=== PATIENT | male | born 1955 | race Caucasian/White ===

== ENCOUNTER 2024-09-05 14:30 | Emergency (ER) | payer BC, MEDICARE, SELFPAY ==
[2024-09-05] VITALS (8 sets, daily range): BP systolic 119–150; BP diastolic 74–95; PULSE 60–63; RESP 14–20; TEMP 36.6–36.8; O2SAT 98–100; BMI 27.4
--- NOTE | ~2024-09-05 | XR_ITS ---
CLINICAL HISTORY: sob 1 view chest x-ray Comparison: None provided Findings: No consolidation or effusion. Heart is borderline enlarged. Pacemaker. No acute fracture. IMPRESSION: 1. No acute findings. This document has been electronically signed by: Juan Jose Chowdhury MD on 09/05/2024 15:39:36
--- NOTE | 2024-09-05 14:38 | ECG_ITS ---
Test Reason : DIZZINESS/CP Blood Pressure : */* mmHG Vent. Rate : 60 BPM Atrial Rate : 60 BPM P-R Int : 250 ms QRS Dur : 160 ms QT Int : 494 ms P-R-T Axes : * -68 113 degrees QTcB Int : 494 ms AV dual-paced rhythm with prolonged AV conduction Abnormal ECG When compared with ECG of 19-Aug-2012 06:58, MANUAL COMPARISON REQUIRED PREVIOUS ECG IS INCOMPATIBLE Referred By: Matilde Proctor Electronically Signed By: Sivakumar Pastor
--- NOTE | 2024-09-05 14:57 | ED.DIZZY ---
HPI - Dizziness General Chief Complaint: Arrhythmia/Palpitations Stated Complaint: DIZZINESS Time Seen by Provider: 09/05/24 14:32 Source: patient, family and EMS Mode of arrival: EMS Limitations: no limitations History of Present Illness ED Provider: Matilde Proctor NP HPI Narrative: Patient is a 68-year-old male with past medical history of atrial fibrillation on Xarelto, hypertension, pacemaker secondary to sick sinus syndrome, eczema, osteoarthritis, impaired fasting glucose who presents emergency department for evaluation. He reports that Saturday 5 days ago he received a call from his contact center associate that he was in atrial flutter detected on remote monitoring. He was advised by his contact center associate Dr. Perdomo to take a dose of flecainide 300 mg to try and convert him out of a flutter. He did this but suspects it it did not change as he remained tachycardic. He states it over the next few days he remained with a persistent tachycardia. However he was not experiencing symptoms. Yesterday he was doing a lot of moving furniture around his home getting the house prepared for swelling. He states that today when he woke up he remained with tachycardic he decided on his own regard to take an additional trial of the flecainide 300 mg. He went back to bed for a couple of hours then got up around 08:00, his pulse has slowed down significantly, he took his blood pressure medication; olmesartan and carvedilol, to out to eat for breakfast. After eating he was feeling significantly tired and lightheaded increased dizziness when he was walking up the stairs which is atypical for him. He decided to take a nap when he awoke he was still feeling lightheaded in dizziness. He attempted to move a mattress with his and symptoms had worsened. He decided to present to local police department for evaluation, was brought in to ED from [facility]. Denies vision changes, neck pain, neck stiffness, chest pain, shortness of breath, difficulty breathing, nausea, vomiting, abdominal pain, numbness or tingling of the extremities, confusion, speech difficulties, facial drooping. Related Data Allergies Allergy/AdvReac Type Severity Reaction Status Date / Time No Known Allergies Allergy Verified 09/05/24 14:53 Review of Systems Review of Systems: Yes all other systems are reviewed and are negative [facility] Past Medical History Attestation statement: The following information was validated with the patient. Source: old records reviewed Social History Social History Advance Directives: No Advance Directives Information Provided: No Do you have a plan to hurt others: No Plan Physical Exam Vital Signs: Vital Signs: Last Vital Signs Temp 97.8 F 09/05/24 18:58 Pulse 60 09/05/24 18:58 Resp 18 09/05/24 18:58 BP 149/95 H 09/05/24 18:58 Pulse Ox 100 09/05/24 18:58 O2 Del Method Room Air 09/05/24 18:58 BMI result Body Mass Index 27.4 Appearance: Alert.?Oriented to person, place and time. No acute distress.?Normal affect. Head: Normocephalic, atraumatic. No head, sinus or TMJ tenderness.? Eyes: Sclera white, conjunctiva pink. PERRL, 3 mm bilaterally. Visual kumar full to confrontation, EOMi.?No Nystagmus. Ears: Bilateral ear canals clear, TM visible with good cone of light.? Nose: Nasal mucosa pink and moist with midline septum, nares patent bilaterally.? Mouth/ Throat: Oral mucosa pink and moist without lesions. Pharynx normal Neck: Normal inspection.? Neck supple.?? CVS: Heart sounds normal. Normal heart rate and rhythm.? Pulses normal.?? Respiratory: No respiratory distress.? Lung sounds clear to auscultation bilaterally?? Abdomen: Soft and non-tender. Normoactive bowel sounds. No pulsatile mass.?? Skin: Skin warm and dry.? Normal skin color.? Normal skin turgor.?? Extremities: No lower extremity edema. Neuro: No focal neurological deficit observed, CN II-XII intact, normal sensory observed, normal coordination observed. Level of consciousness: Appropriate for age. Motor strength: right upper extremity 5 /5, left upper extremity 5 /5, right lower extremity 5 /5, left lower extremity 5 /5.?Speech: Normal, Gait: Normal, Hzouqs-rk-saor test: Normal, Hcup-fv-klif test: Normal. Ambulates with normal steady gait. Course Reevaluation(s) Reevaluation #1: CBC is without leukocytosis, has a mild normocytic anemia that does not meet transfusion criteria, no thrombocytopenia. No significant electrolyte derangement. BUN of 33 with creatinine 1.24, eGFR 59, no baseline for comparison. Sensitive troponin within normal range. Chest x-ray without consolidation or infiltrate to suggest pneumonia, no pleural effusions, not consistent with CHF. Orthostatic vital signs were negative though he was symptomatic, Patient to recieve 1 L normal saline IV fluid. Noted tachyarrhythmias on telemetry while in the emergency department. Plan to obtain a delta troponin, will attempt to contact his contact center associate, Dr. Perdomo for further consultation, concern for possible intermittent tachyarrhytmia resulting in his presenting symptoms today, that may require medication adjustment at their discretion Reevaluation #2: I spoke with Cardiology on-call through [facility] reviewed patient's presenting symptoms, ECG findings, current laboratory findings. She does express concern that he was symptomatic after no longer being in atrial flutter. She advises that she will look further into his medical record as this is not her patient directly, and advises to obtain delta troponin which has already been ordered at this time. Patient will be signed out to Catherine LUCAS, delta troponin, re-consultation with his cardiology service and re-evaluation Time: 17:40 Reevaluation #3: Nella Lee PA-C 1923 ----> I spoke with the patient's covering contact center associate who states they believe the patient's symptoms are likely secondary to his flecainide use. She stated that it would be reasonable to either admit or discharge home. I spoke with the patient and he stated he felt much better and would prefer to be discharged home. Given he has been asymptomatic while in the department with a normal work up - I believe discharge home is reasonable. Medications Administered Discontinued Medications Generic Name Dose Route Start Last Admin Trade Name Freq PRN Reason Stop Dose Admin Sodium Chloride 1,000 mls @ 999 mls/hr 09/05/24 16:15 09/05/24 18:31 Ns IV 09/05/24 17:15 Infused .Q1H1M WILLA Infusion Medical Decision Making Medical Decision Making [facility] Narrative: Patient is a 68-year-old male with past medical history of atrial fibrillation on Xarelto, hypertension, pacemaker secondary to sick sinus syndrome, eczema, osteoarthritis, impaired fasting glucose who presents emergency department for evaluation of lightheadedness/dizziness as per HPI. Symptom onset was this morning. Of note, at least since the past 5 days he has been in suspected persistent atrial flutter, initially tried a single dose of flecainide 300 mg orally as advised by his contact center associate without resolution. He self elected to take a 2nd dose of flecainide 300 mg today, and although this did bring his pulse back down to a normal right he awoke a few hours after taking the medicine and was feeling generally fatigued, lightheaded and having dizziness particularly with the stairs which is very atypical for him. Symptoms have persisted throughout today. He had a difficult time moving furniture thus he decided to seek evaluation. On examination he has no focal neurological deficits, no spontaneous or gaze evoked nystagmus, no ataxia, no diplopia, no dysarthria,no dysphagia, no dysphonia, no dysmetria. I do not appreciate arrhythmia on telemetry, appears to be a paced rhythm. No endorsed palpitations. No signs of fluid volume overload. Will obtain CBC to evaluate for leukocytosis/ anemia, CMP to evaluate for abnormal electrolytes /abnormal renal function/ abnormal hepatic function, EKG and troponin to evaluate for ischemia/ACS. Differential Diagnosis Differential Diagnoses: The differential diagnosis associated with the presentation includes (See narrative above) Admission/Observation Consideration of admission/observation: Escalation of care including admission/observation considered Lab Data MDM Lab Attestation statement: I reviewed the patient's lab results. 09/05/24 15:15 09/05/24 15:15 Labs: Lab Results 09/05/24 09/05/24 Range/Units 15:15 17:37 WBC 7.5 (4.8-10.8) X10*3/uL RBC 3.75 L (4.60-5.80) X10*6/uL Hgb 11.7 L (14.0-18.0) g/dl Hct 33.0 L (42.0-52.0) % MCV 88.0 (80.0-98.0) fL MCH 31.2 (27.0-33.0) pg MCHC 35.5 (31.0-36.0) g/dl RDW 12.5 (11.0-16.0) % Plt Count 243 (160-400) X10*3/uL MPV 9.2 L (9.4-12.4) fL Immature Gran % (Auto) 0.1 (0.0-0.4) % Neut % (Auto) 68.2 (45-73) % Lymph % (Auto) 21.2 (20-40) % Mcleod % (Auto) 9.4 (2-11) % Eos % (Auto) 0.7 (0-4) % Baso % (Auto) 0.4 (0-2) % Lymph # (Auto) 1.6 (1.2-4.9) X10*3/uL Mcleod # (Auto) 0.7 (0.1-1.2) X10*3/uL Eos # (Auto) 0.1 (0.0-0.4) X10*3/uL Baso # (Auto) 0.0 (0.0-0.2) X10*3/uL Abs Immat Gran (auto) 0.01 (0.00-0.03) X10*3/uL Absolute Neuts (auto) 5.1 (2.0-8.3) x10*3/uL Absolute Nucleated RBC 0.000 (0.0-0.012) X10*3/uL Nucleated RBC % (auto) 0.0 (0.0-0.2) /100WBC PT 17.1 H (10.9-12.4) SEC INR 1.5 H (0.9-1.1) Sodium 135 (135-145) mmol/L Potassium 4.9 (3.3-5.1) mmol/L Chloride 106 (96-108) mmol/L Carbon Dioxide 21 L (22-29) mmol/L Anion Gap 13 (12-20) BUN 33 H (9-16) mg/dL Creatinine 1.21 (0.5-1.4) mg/dL Estim Creat Clear Calc 59.4 Estimated GFR 59 Random Glucose 140 H (60-115) mg/dL Calcium 9.3 (8.4-10.2) mg/dL Magnesium 2.1 (1.6-2.6) mg/dL Total Bilirubin 0.5 (0.0-1.0) mg/dL AST 44 H (5-37) U/L ALT 33 (0-40) U/L Alkaline Phosphatase 60 (39-117) U/L Troponin I High Sens 5.4 5.1 (<3.5-35.0) ng/L B-Natriuretic Peptide 250 H (<100) pg/mL Total Protein 6.6 (6.5-8.0) g/dL Albumin 4.2 (3.5-5.0) g/dL Independent Interpretation I performed an independent interpretation of an: EKG (AV paced rhythm, prolonged RHETT 250ms, QTC 494) and Plain X-Ray Radiology Impression Discussion of test interpretation with radiology: I have reviewed the radiologist's reading. Radiologist Impression: 1 view chest x-ray Comparison: None provided Findings: No consolidation or effusion. Heart is borderline enlarged. Pacemaker. No acute fracture. IMPRESSION: 1. No acute findings. Independent Historian Clinical information obtained from an independent historian. History obtained from or confirmed by: Spouse and EMS Chronic Conditions Patient?s care impacted by: Other (See narrative above) Discharge Plan Discharge Clinical Impression: Palpitations, Dizziness Patient Disposition: Home, Self-Care Instructions: Heart Palpitations (DC), Dizziness (ED) Additional Instructions: Follow up with your primary care provider and your contact center associate. Continue taking your medication as prescribed. Return to the emergency department immediately if your symptoms worsen or if you develop any numbness, tingling, dizziness, shortness of breath, difficulty breathing, chest pain, blurry vision, loss of vision, nausea, vomiting, abdominal pain, fever, chills, back pain, or any other complaints. Please see the information below about our Patient Portal. If you are not yet enrolled in the [facility] Patient Portal, you will receive an enrollment email invitation following your visit to any [facility] care setting. You may also self-enroll in the Patient Portal by visiting our website: [email or web address] The following information is required to access the Patient Portal: - Your [facility] Medical Record Number - Your personal home email address (must match what is in your electronic medical record, Registration staff can assist with this) - Name - Date of Capabilities of the Patient Portal: - Message some providers - View upcoming appointments - Access your health summary, medical history, and visit history - View current conditions and allergies - View procedure and lab results - View your medications, including guidelines, side effects, and precautions - Complete pre-appointment questionnaires requested by your provider - Ready summary reports of your office visits and procedures To access the Patient Portal Mobile [employer], follow these directions: - Search [facility] in the [employer] Store or Google Play Store - Download the [employer] - Search for [facility] - Enter your login/password Referrals: Christie Quintana NP [Primary Care Provider, Family Practice] Print Language: Albanian
[2024-09-05 15:22] LABS: MANUAL DIFF FLAG NO
[2024-09-05 15:23] LABS: Basophils Percent Auto 0.4 % (0-2); Eosinophils Absolute Auto 0.1 X10*3/uL (0.0-0.4); Eosinophils Percent Auto 0.7 % (0-4); Hemoglobin 11.7 g/dl (14.0-18.0); Imm Gran Abs Auto 0.01 X10*3/uL (0.00-0.03); Imm Gran Pct Auto 0.1 % (0.0-0.4); Lymphocytes Absolute Auto 1.6 X10*3/uL (1.2-4.9); Lymphocytes Percent Auto 21.2 % (20-40); Mean Corpuscular HGB Conc 35.5 g/dl (31.0-36.0); Mean Corpuscular Hemoglobin 31.2 pg (27.0-33.0); Mean Platelet Volume 9.2 fL (9.4-12.4); Monocytes Absolute Auto 0.7 X10*3/uL (0.1-1.2); Monocytes Percent Auto 9.4 % (2-11); Neutrophils Absolute Auto 5.1 x10*3/uL (2.0-8.3); Neutrophils Percent Auto 68.2 % (45-73); Platelet Count 243 X10*3/uL (160-400); Red Blood Count 3.75 X10*6/uL (4.60-5.80); Red Cell Distribution Width 12.5 % (11.0-16.0); White Blood Count 7.5 X10*3/uL (4.8-10.8)
[2024-09-05 15:29] LABS: INTERNATIONAL NORM RATIO 1.5 (0.9-1.1); Prothrombin Time 17.1 SEC (10.9-12.4)
[2024-09-05 15:37] LABS: Magnesium 2.1 mg/dL (1.6-2.6)
[2024-09-05 15:41] LABS: Albumin Level 4.2 g/dL (3.5-5.0); Alkaline Phosphatase 60 U/L (39-117); Anion Gap 13 (12-20); Aspartate Amino Transferase 44 U/L (5-37); Bilirubin Total 0.5 mg/dL (0.0-1.0); Blood Urea Nitrogen 33 mg/dL (9-16); Calcium 9.3 mg/dL (8.4-10.2); Carbon Dioxide 21 mmol/L (22-29); Chloride 106 mmol/L (96-108); Creatinine Clr Calc Pharmacy 59.4; Estimated Glomerular Filt Rate 59; Glucose Random 140 mg/dL (60-115); Potassium 4.9 mmol/L (3.3-5.1); Sodium 135 mmol/L (135-145); Total Protein 6.6 g/dL (6.5-8.0)
[2024-09-05 15:45] LABS: Troponin-I High Sensitivity 5.4 ng/L (<3.5-35.0)
[2024-09-05 15:50] LABS: B Type Natriuretic Peptide 250 pg/mL (<100)
[2024-09-05 16:04] LABS: Alanine Aminotransferase 33 U/L (0-40)
[2024-09-05] MEDS: 0.9 % Sodium Chloride 1,000 ML 999 ML IV (16:13)
[2024-09-05 18:03] LABS: Troponin-I High Sensitivity 5.1 ng/L (<3.5-35.0)
== END 2024-09-05 19:33 | disposition home or self-care (01) ==
PROVIDERS: Nurse Practitioner Family; Emergency Provider Emergency Medicine; PCP Nurse Practitioner Family
DX: R00.2 Palpitations (principal); R42 Dizziness and giddiness; R00.0 Tachycardia, unspecified; D64.9 Anemia, unspecified; I10 Essential (primary) hypertension; I48.91 Unspecified atrial fibrillation; Z95.0 Presence of cardiac pacemaker; Z79.01 Long term (current) use of anticoagulants
CPT/HCPCS: 36415; 71045; 80053; 83735; 83880; 84484; 85025; 85610; 93005; 96360; 96361; 99284; 99285

== ENCOUNTER → 2024-09-05 14:38 | Outpatient (BNV) | payer BC, MEDICARE, SELFPAY | PROVIDERS: Emergency Provider Emergency Medicine; PCP Nurse Practitioner Family; Visit Provider Internal Medicine Cardiovascular Disease | DX: I44.0 Atrioventricular block, first degree (principal) | CPT/HCPCS: 93010 ==

== ENCOUNTER → 2024-09-05 14:38 | Outpatient (BNV) | payer BC, MEDICARE, SELFPAY | PROVIDERS: Emergency Provider Emergency Medicine; PCP Nurse Practitioner Family; Visit Provider Nuclear Medicine | DX: R06.02 Shortness of breath (principal) | CPT/HCPCS: 71045 ==